=== PATIENT | male | born 1970 | race African-American/Black ===

== ENCOUNTER 2021-05-12 10:43 | Emergency (ER) | payer OTHER ==
[2021-05-13 14:09] LABS: SARS-CoV-2 NAA Not Detected (Not Detected)
== END 2021-05-12 12:05 | disposition home or self-care (01) ==
LOC: JVIRT 10:43
DX: Z20.822 Contact with and (suspected) exposure to COVID-19 (principal)
CPT/HCPCS: C9803; Q3014-GT; U0003; U0005

== ENCOUNTER 2021-05-20 12:30 | Emergency (ER) | payer OTHER ==
[2021-05-21 16:08] LABS: SARS-CoV-2 NAA Not Detected (Not Detected)
== END 2021-05-20 12:39 | disposition home or self-care (01) ==
LOC: JVIRT 12:30
DX: Z11.52 Encounter for screening for COVID-19 (principal)
CPT/HCPCS: C9803; Q3014-GT; U0003; U0005

== ENCOUNTER 2021-05-27 11:42 | Emergency (ER) | payer OTHER | END 2021-05-27 12:00 | LOC: JVIRT 11:42 | DX: Z11.52 Encounter for screening for COVID-19 (principal) | CPT/HCPCS: Q3014-GT ==

== ENCOUNTER 2023-01-10 13:20 | Emergency (ER) | payer OTHER ==
[2023-01-10 13:29] VITALS: BP 175/66; PULSE 97; RESP 18; TEMP 97.8; BMI 38.3
== END 2023-01-10 14:04 | disposition home or self-care (01) ==
LOC: JER 13:20 → JERFT 13:20
PROC: 09C3XZZ Extirpation of Matter from Right External Auditory Canal, External Approach (ICD-10-PCS; principal; 2023-01-10)
DX: T16.1XXA Foreign body in right ear, initial encounter (principal)
CPT/HCPCS: 99282-25